=== PATIENT | male | born 1970 | race Caucasian/White ===

== ENCOUNTER 2018-08-28 14:15 | Inpatient (IN) ==
[2018-08-28] MEDS ORDERED: dilTIAZem HCl 5 MG/ML 5 ML VIAL IV STA (14:44)
[2018-08-28] MEDS ORDERED: dilTIAZem HCl 125 MG in DEXTROSE 5% 100 ML IV SCH (14:45)
--- NOTE | 2018-08-28 14:47 | XRay Report ---
XR chest 1V portable CLINICAL HISTORY: weakness COMPARISON STUDY: No previous studies for comparison. FINDINGS: The heart is enlarged. There is radiographic evidence of mild pulmonary vascular congestion . Lung markings are likely situated due to the patient's large body habitus. There is no focal pulmon jeffrey consolidation. No pleural effusions are visualized.[ IMPRESSION: 1. Technically limited study secondary to patient's large body habitus 2. Cardiomegaly and suspected mild pulmonary vascular congestion. Electronically signed by: Art Brar M.D. 08/28/2018 2:46 PM
[2018-08-28 15:29] LABS: Basophils # (auto) 0.03 K/uL (0-0.2); Basophils % (auto) 0.3 %; Eosinophils # (auto) 0.06 K/uL (0-0.5); Eosinophils % (auto) 0.6 %; Hematocrit (blood only) 45.5 % (42-52); Immature Granulocytes # (auto) 0.06 K/uL (0.00-0.02); Immature Granulocytes % (auto) 0.6 %; Lymphocytes # (auto) 1.79 K/uL (1.2-3.4); Lymphocytes % (auto) 16.8 %; Mean Corpuscular Volume 80.4 fL (80-100); Monocytes # (auto) 0.87 K/uL (0.11-0.59); Monocytes % (auto) 8.2 %; Neutrophils # (auto) 7.85 K/uL (1.4-6.5); Neutrophils % (auto) 73.5 %; Platelet Count 295 K/uL (130-400); RDW Coefficient of Variation 15.3 % (11.5-14.5); RDW Standard Deviation 44.2 fL (36.4-46.3); Red Blood Count 5.66 M/uL (4.7-6.1); White Blood Count 10.66 K/uL (4.8-10.8)
[2018-08-28 15:35] LABS: Alanine Aminotransferase 46 U/L (12-78); Albumin Level 3.7 gm/dl (3.4-5.0); Aspartate Aminotransferase 29 U/L (15-37); BUN Creatinine Ratio 8.4 (10-20); Blood Urea Nitrogen 7 mg/dl (7-18); Calcium 8.6 mg/dl (8.5-10.1); Carbon Dioxide 24 mmol/L (21-32); Chloride 102 mmol/L (98-107); Creatinine Clr Calc Pharmacy 224.5 ml/min; Est GFR (African American) 118.6; Est GFR (Non-African American) 102.3; Glucose 125 mg/dl (70-99); Potassium 4.1 mmol/L (3.5-5.1); Sodium 134 mmol/L (136-145)
[2018-08-28 15:43] LABS: INR 2.9 (0.9-1.1); Prothrombin Time 27.2 Seconds (9.0-12.0)
[2018-08-28 15:46] LABS: Alkaline Phosphatase 80 U/L (45-117); Bilirubin,Total 0.6 mg/dl (0.2-1); Creatine Kinase 205 U/L (39-308); Globulin 3.8 gm/dl (2.5-4.0); Total Protein 7.5 gm/dl (6.4-8.2); Troponin I < 0.015 ng/ml (0-0.045)
[2018-08-28] MEDS ORDERED: HALOPERIDOL LACTATE 5 MG/ML 1 ML VIAL IM STA ×2 (16:20→16:37)
[2018-08-28] MEDS ORDERED: LORazepam 2 MG/ML VIAL (IM USE) IM STA (16:20)
[2018-08-28] MEDS ORDERED: HALOPERIDOL LACTATE 5 MG/ML 1 ML VIAL IV STA (16:34)
[2018-08-28 17:36] LABS: Appearance Urine Clear (Clear); Bilirubin Urine Negative (Negative); Color Urine Yellow; Glucose Urine UA Negative (Negative); Ketones Urine Negative (Negative); Leukocyte Esterase Urine Negative (Negative); Nitrite Urine Negative (Negative); Protein Urine Negative (Negative); Specific Gravity Urine 1.008 (1.000-1.030); Urobilinogen Urine Negative (Negative)
[2018-08-28 17:52] LABS: Bacteria Urine Automated Negative (Negative); Cast Urine Automated 0 /lpf (0-5); Epithelial Cell Urine Auto 0-5 /lpf (0-5); WBC Urine Automated 0 /hpf (0-5)
[2018-08-28 17:55] LABS: Amphetamines+Metham, Urine Neg (Neg); Barbiturates, Urine Neg (Neg); Benzodiazepine, Urine Neg (Neg); Cocaine, Urine Neg (Neg); MDMA (Ecstacy), Urine Neg (Neg); Methadone, Urine Neg (Neg); Opiate, Urine Neg (Neg); Phencyclidine, Urine Neg (Neg)
[2018-08-28] MEDS ORDERED: KETAMINE HCL 50 MG/ML IV STA (18:03)
[2018-08-28] MEDS ORDERED: KETAMINE HCL INJ 50 MG/ML 10 ML VIAL IV STA (18:30)
--- NOTE | 2018-08-28 19:19 | Emergency Department Note ---
Entered by Devonte Fletcher acting as a scribe for Marlon Horta DO History of Present Illness General Chief complaint: Altered Mental Status Time Seen by Provider: 08/28/18 14:20 Source: patient and other (nurse) Mode of arrival: ambulatory History of Present Illness Provider complaint: altered mental status Onset (ago): day(s) (today) Location: head Pain Consistency: + other (episode) Quality: + other (altered mental status) Associated symptoms: + denies other symptoms (pain,) and + confusion; no chest pain and no shortness of breath The patient is a 48 year old male who presents to the Emergency Room via EMS secondary to an episode of altered mental status that occurred today prior to arrival. Nursing staff reports that the patient stated he was from the [facility] and wanted to take a drive for some fresh air and ended up in the [facility]. The nurse also reports that one of the hospital workers were leaving work and found the patient sitting in their car. The patient reports that he stopped at the ER for a map and then returned to the wrong vehicle. Nursing staff reports that the patient denies any pain or shortness of breath and states that the patient is tachycardic with a glucose level of 125. Nursing staff also reports that the patient denies any recent trauma. The patient states that he has a history of atrial fibrillation and hypertension, but denies any history of a CVA or VT. The patient states that he is currently unemployed and lives with his and three kids. He further reports that he is currently prescribed warfarin and coumadin. Home Medications Home Medications Medication Instructions Recorded Confirmed Type carvedilol 25 mg PO QPM 08/28/18 08/28/18 History lisinopril 10 mg PO QAM 08/28/18 08/28/18 History multivitamin 1 tab PO QAM 08/28/18 08/28/18 History warfarin 8 mg PO QPM 08/28/18 08/28/18 History Allergies Allergy/AdvReac Type Severity Reaction Status Date / Time No Known Allergies Allergy Verified 08/28/18 17:48 Past Med/Surg History Medical History Afib Bipolar disorder HTN (hypertension) Social History Feels Safe at Home: Yes Smoking Status: Never smoker Review of Systems See HPI for pertinent positives & negatives. and A total of 10 systems reviewed and were otherwise negative Physical Exam Vital Signs Vital Signs - 24 hr 08/28/18 14:26 08/28/18 14:31 08/28/18 16:34 Temperature 36.5 C Temperature Source Oral Sepsis Recent Fever Within 48 Hours No Sepsis New/Unexplained Change in Mental Status No Sepsis Action Taken by Nursing No Action Required Pulse Rate 152 H 154 H Pulse Rate [Finger] 82 Pulse Rate from SpO2 Sensor 140 H Pulse Rhythm Irregular Pulse Rhythm [Finger] Respiratory Rate 19 28 H 18 Respiratory Effort / Characteristics Non-Labored Spontaneous Respiratory Depth Normal Respiratory Pattern Regular Blood Pressure 152/106 H 127/85 Blood Pressure [Left Arm] Blood Pressure [Right Arm] 142/102 H Blood Pressure Mean 121 99 Blood Pressure Mean [Left Arm] Blood Pressure Mean [Right Arm] 115 Pulse Oximetry 97 97 98 Oxygen Delivery Method Room Air Room Air Room Air 08/28/18 18:25 08/28/18 19:05 Temperature Temperature Source Sepsis Recent Fever Within 48 Hours Sepsis New/Unexplained Change in Mental Status Sepsis Action Taken by Nursing Pulse Rate Pulse Rate [Finger] 138 H 120 H Pulse Rate from SpO2 Sensor Pulse Rhythm Pulse Rhythm [Finger] Irregular Respiratory Rate 17 15 Respiratory Effort / Characteristics Non-Labored Respiratory Depth Normal Respiratory Pattern Regular Blood Pressure Blood Pressure [Left Arm] 123/99 176/98 H Blood Pressure [Right Arm] 176/98 H Blood Pressure Mean Blood Pressure Mean [Left Arm] 107 124 Blood Pressure Mean [Right Arm] 124 Pulse Oximetry 95 97 Oxygen Delivery Method Room Air Room Air VITAL SIGNS: were reviewed as above. GENERAL:Non-toxic in appearance. SKIN: Warm dry and pink. HEAD: Normocephalic and atraumatic. OROPHARYNX: Is clear and moist NECK: Supple without lymphadenopathy or meningismus. LUNGS: clear. HEART: Regular rate and rhythm. ABDOMEN: Soft and nontender. EXTREMITIES: Warm and well perfused. NEUROLOGICALLY: Awake alert and oriented without focal deficit. Cranial nerves 2 -12 are intact. There is no pronator drift. Cerebellar testing is within normal limits. There is no nystagmus. There is no facial droop. Speech is clear. Vision is grossly normal. Mild confusion about events today. MUSCULOSKELETAL: Good muscle tone. No evidence of trauma. Course 1424: Past medical records reviewed. The patient was evaluated in room [facility], and a complete history and physical examination were performed. 1432: I spoke on the phone with the patient's Kelli and she states that she filed a 302 petition against him last night in [facility] in [facility] because she and he daughter did not feel safe around the patient. She further states that the patient has been acting weird and has not been taking his bipolar medications. 1520: The patient was unable to hold still for the CT scan was was over the weight limit. 1730: I reviewed the patients case with Enedina Marie PA-C. She states that she is unable to admit the patient without a negative CT scan. The patient will be sedated and taken back to CT. 1928: I reviewed the [facility] He will evaluate the patient for further management. Consultations Consultation #1: Enedina Marie PA-C Time: 17:30 Consultation #2: [facility] Time: 19:28 Administered Medications Diltiazem HCl 125 mg/ Dextrose 125 mls @ 0 mls/hr IV .Q0M JUAN CARLOS; Protocol Stop: 09/27/18 14:44 Last Titration: 08/28/18 19:24 Dose: 10 mg/hr, 10 mls/hr Titration: 08/28/18 16:25 Dose: 0 mg/hr, 0 mls/hr Admin: 08/28/18 15:42 Dose: 10 mg/hr, 10 mls/hr Discontinued Medications Diltiazem HCl (Cardizem) 30 mg IV NOW STA Stop: 08/28/18 14:45 Last Admin: 08/28/18 15:08 Dose: 30 mg Haloperidol Lactate (Haldol) 5 mg IM NOW STA Stop: 08/28/18 16:21 Last Admin: 08/28/18 16:44 Dose: 5 mg Haloperidol Lactate (Haldol) 5 mg IV NOW STA Stop: 08/28/18 16:35 Last Admin: 08/28/18 16:45 Dose: Not Given Haloperidol Lactate (Haldol) 5 mg IM NOW STA Stop: 08/28/18 16:38 Last Admin: 08/28/18 16:44 Dose: 5 mg Ketamine HCl (Ketalar Steri-Vial) 50 mg IV NOW STA Stop: 08/28/18 18:31 Last Admin: 08/28/18 18:36 Dose: 50 mg Lorazepam (Ativan) 2 mg IM NOW STA Stop: 08/28/18 16:21 Last Admin: 08/28/18 16:43 Dose: 2 mg Medical Decision Making Differential Diagnosis Differential diagnosis: Etiologies such as metabolic, infection, hypoglycemia, electrolyte abnormalities , cardiac sources, intracerebral event, toxicologic, neurologic, as well as others were entertained. Medical Records Attestation: I reviewed the patient's medical records. Home Medications Current Medication List: was personally reviewed by me Laboratory Data Attestation: I reviewed the patient's lab results. Result diagrams: 08/28/18 15:00 08/28/18 15:00 Lab Results 08/28/18 08/28/18 08/28/18 Range/Units 14:28 15:00 15:00 WBC 10.66 (4.8-10.8) K/uL RBC 5.66 (4.7-6.1) M/uL Hgb 15.0 (14.0-18.0) g/dL Hct 45.5 (42-52) % MCV 80.4 (80-100) fL MCH 26.5 (25-34) pg MCHC 33.0 (32-36) g/dL RDW Std Deviation 44.2 (36.4-46.3) fL RDW Coeff of Natalia 15.3 H (11.5-14.5) % Plt Count 295 (130-400) K/uL MPV 12.0 H (7.4-10.4) fL Immature Gran % (Auto) 0.6 % Neut % (Auto) 73.5 % Lymph % (Auto) 16.8 % Cobb % (Auto) 8.2 % Eos % (Auto) 0.6 % Baso % (Auto) 0.3 % Immature Gran # (Auto) 0.06 H (0.00-0.02) K/uL Neut # (Auto) 7.85 H (1.4-6.5) K/uL Lymph # (Auto) 1.79 (1.2-3.4) K/uL Cobb # (Auto) 0.87 H (0.11-0.59) K/uL Eos # (Auto) 0.06 (0-0.5) K/uL Baso # (Auto) 0.03 (0-0.2) K/uL PT 27.2 H (9.0-12.0) Seconds INR 2.9 H (0.9-1.1) Sodium (136-145) mmol/L Potassium (3.5-5.1) mmol/L Chloride (98-107) mmol/L Carbon Dioxide (21-32) mmol/L Anion Gap (3-11) BUN (7-18) mg/dl Creatinine (0.6-1.4) mg/dl Est Cr Clr Drug Dosing ml/min Est GFR ( Amer) Est GFR (Non-Af Amer) BUN/Creatinine Ratio (10-20) Glucose (70-99) mg/dl POC Glucose 125 H (70-99) Calcium (8.5-10.1) mg/dl Total Bilirubin (0.2-1) mg/dl AST (15-37) U/L ALT (12-78) U/L Alkaline Phosphatase (45-117) U/L Ammonia (11-32) umol/L Total Creatine Kinase (39-308) U/L Troponin I (0-0.045) ng/ml Total Protein (6.4-8.2) gm/dl Albumin (3.4-5.0) gm/dl Globulin (2.5-4.0) gm/dl Albumin/Globulin Ratio (0.9-2) TSH (0.300-4.500) uIu/ml Urine Color Urine Appearance (Clear) Urine pH (4.5-7.5) Ur Specific [place] (1.000-1.030) Urine Protein (Negative) Urine Glucose (UA) (Negative) Urine Ketones (Negative) Urine Blood (Negative) Urine Nitrite (Negative) Urine Bilirubin (Negative) Urine Urobilinogen (Negative) Ur Leukocyte Esterase (Negative) Urine WBC (Auto) (0-5) /hpf Urine RBC (Auto) (0-4) /hpf U Hyaline Cast (Auto) (0-5) /lpf U Epithel Cells (Auto) (0-5) /lpf Urine Bacteria (Auto) (Negative) Urine Opiates Screen (Neg) Ur Methadone, Qual (Neg) Urine Barbiturates (Neg) Ur Phencyclidine (PCP) (Neg) U Amphetamin/Meth Scrn (Neg) MDMA (Ecstasy) Screen (Neg) U Benzodiazepines Scrn (Neg) Ur Cocaine Metabolite (Neg) U Marijuana (THC) Screen (Neg) Ethyl Alcohol mg/dL (0-3) mg/dl 08/28/18 08/28/18 08/28/18 Range/Units 15:00 15:00 16:52 WBC (4.8-10.8) K/uL RBC (4.7-6.1) M/uL Hgb (14.0-18.0) g/dL Hct (42-52) % MCV (80-100) fL MCH (25-34) pg MCHC (32-36) g/dL RDW Std Deviation (36.4-46.3) fL RDW Coeff of Natalia (11.5-14.5) % Plt Count (130-400) K/uL MPV (7.4-10.4) fL Immature Gran % (Auto) % Neut % (Auto) % Lymph % (Auto) % Cobb % (Auto) % Eos % (Auto) % Baso % (Auto) % Immature Gran # (Auto) (0.00-0.02) K/uL Neut # (Auto) (1.4-6.5) K/uL Lymph # (Auto) (1.2-3.4) K/uL Cobb # (Auto) (0.11-0.59) K/uL Eos # (Auto) (0-0.5) K/uL Baso # (Auto) (0-0.2) K/uL PT (9.0-12.0) Seconds INR (0.9-1.1) Sodium 134 L (136-145) mmol/L Potassium 4.1 (3.5-5.1) mmol/L Chloride 102 (98-107) mmol/L Carbon Dioxide 24 (21-32) mmol/L Anion Gap 8.0 (3-11) BUN 7 (7-18) mg/dl Creatinine 0.85 (0.6-1.4) mg/dl Est Cr Clr Drug Dosing 224.5 ml/min Est GFR ( Amer) 118.6 Est GFR (Non-Af Amer) 102.3 BUN/Creatinine Ratio 8.4 L (10-20) Glucose 125 H (70-99) mg/dl POC Glucose (70-99) Calcium 8.6 (8.5-10.1) mg/dl Total Bilirubin 0.6 (0.2-1) mg/dl AST 29 (15-37) U/L ALT 46 (12-78) U/L Alkaline Phosphatase 80 (45-117) U/L Ammonia 23.3 (11-32) umol/L Total Creatine Kinase 205 (39-308) U/L Troponin I < 0.015 (0-0.045) ng/ml Total Protein 7.5 (6.4-8.2) gm/dl Albumin 3.7 (3.4-5.0) gm/dl Globulin 3.8 (2.5-4.0) gm/dl Albumin/Globulin Ratio 1.0 (0.9-2) TSH 0.691 (0.300-4.500) uIu/ml Urine Color Urine Appearance (Clear) Urine pH (4.5-7.5) Ur Specific [place] (1.000-1.030) Urine Protein (Negative) Urine Glucose (UA) (Negative) Urine Ketones (Negative) Urine Blood (Negative) Urine Nitrite (Negative) Urine Bilirubin (Negative) Urine Urobilinogen (Negative) Ur Leukocyte Esterase (Negative) Urine WBC (Auto) (0-5) /hpf Urine RBC (Auto) (0-4) /hpf U Hyaline Cast (Auto) (0-5) /lpf U Epithel Cells (Auto) (0-5) /lpf Urine Bacteria (Auto) (Negative) Urine Opiates Screen (Neg) Ur Methadone, Qual (Neg) Urine Barbiturates (Neg) Ur Phencyclidine (PCP) (Neg) U Amphetamin/Meth Scrn (Neg) MDMA (Ecstasy) Screen (Neg) U Benzodiazepines Scrn (Neg) Ur Cocaine Metabolite (Neg) U Marijuana (THC) Screen (Neg) Ethyl Alcohol mg/dL < 3.0 (0-3) mg/dl 08/28/18 08/28/18 Range/Units 17:22 17:22 WBC (4.8-10.8) K/uL RBC (4.7-6.1) M/uL Hgb (14.0-18.0) g/dL Hct (42-52) % MCV (80-100) fL MCH (25-34) pg MCHC (32-36) g/dL RDW Std Deviation (36.4-46.3) fL RDW Coeff of Natalia (11.5-14.5) % Plt Count (130-400) K/uL MPV (7.4-10.4) fL Immature Gran % (Auto) % Neut % (Auto) % Lymph % (Auto) % Cobb % (Auto) % Eos % (Auto) % Baso % (Auto) % Immature Gran # (Auto) (0.00-0.02) K/uL Neut # (Auto) (1.4-6.5) K/uL Lymph # (Auto) (1.2-3.4) K/uL Cobb # (Auto) (0.11-0.59) K/uL Eos # (Auto) (0-0.5) K/uL Baso # (Auto) (0-0.2) K/uL PT (9.0-12.0) Seconds INR (0.9-1.1) Sodium (136-145) mmol/L Potassium (3.5-5.1) mmol/L Chloride (98-107) mmol/L Carbon Dioxide (21-32) mmol/L Anion Gap (3-11) BUN (7-18) mg/dl Creatinine (0.6-1.4) mg/dl Est Cr Clr Drug Dosing ml/min Est GFR ( Amer) Est GFR (Non-Af Amer) BUN/Creatinine Ratio (10-20) Glucose (70-99) mg/dl POC Glucose (70-99) Calcium (8.5-10.1) mg/dl Total Bilirubin (0.2-1) mg/dl AST (15-37) U/L ALT (12-78) U/L Alkaline Phosphatase (45-117) U/L Ammonia (11-32) umol/L Total Creatine Kinase (39-308) U/L Troponin I (0-0.045) ng/ml Total Protein (6.4-8.2) gm/dl Albumin (3.4-5.0) gm/dl Globulin (2.5-4.0) gm/dl Albumin/Globulin Ratio (0.9-2) TSH (0.300-4.500) uIu/ml Urine Color Yellow Urine Appearance Clear (Clear) Urine pH 6.0 (4.5-7.5) Ur Specific [place] 1.008 (1.000-1.030) Urine Protein Negative (Negative) Urine Glucose (UA) Negative (Negative) Urine Ketones Negative (Negative) Urine Blood Trace H (Negative) Urine Nitrite Negative (Negative) Urine Bilirubin Negative (Negative) Urine Urobilinogen Negative (Negative) Ur Leukocyte Esterase Negative (Negative) Urine WBC (Auto) 0 (0-5) /hpf Urine RBC (Auto) 0-4 (0-4) /hpf U Hyaline Cast (Auto) 0 (0-5) /lpf U Epithel Cells (Auto) 0-5 (0-5) /lpf Urine Bacteria (Auto) Negative (Negative) Urine Opiates Screen Neg (Neg) Ur Methadone, Qual Neg (Neg) Urine Barbiturates Neg (Neg) Ur Phencyclidine (PCP) Neg (Neg) U Amphetamin/Meth Scrn Neg (Neg) MDMA (Ecstasy) Screen Neg (Neg) U Benzodiazepines Scrn Neg (Neg) Ur Cocaine Metabolite Neg (Neg) U Marijuana (THC) Screen Neg (Neg) Ethyl Alcohol mg/dL (0-3) mg/dl Imaging Data Radiologist's Impression: Radiology results as stated below per my review and the radiologist's interpretation: XR chest 1V portable CLINICAL HISTORY: weakness COMPARISON STUDY: No previous studies for comparison. FINDINGS: The heart is enlarged. There is radiographic evidence of mild pulmonary vascular congestion. Lung markings are likely situated due to the patient's large body habitus. There is no focal pulmonary consolidation. No pleural effusions are visualized.[ IMPRESSION: 1. Technically limited study secondary to patient's large body habitus 2. Cardiomegaly and suspected mild pulmonary vascular congestion. Electronically signed by: Art Brar M.D. 08/28/2018 2:[address] head/brain wo con CLINICAL HISTORY: 48 years-old Male presenting with ams. TECHNIQUE: Multidetector CT imaging of the head was performed without the use of intravenous contrast. IV contrast: None. One or more dose lowering techniques were used consistent with the principles of ALARA (as low as reasonably achievable), including automatic exposure control, mA or kV adjustment to individual patient size, and/or use of iterative reconstruction. COMPARISON: None. CT DOSE (mGy.cm): The estimated cumulative dose is 2248.10 mGy.cm. FINDINGS: Aerospace Engineer topogram: Unremarkable. Ventricles and sulci normal in size. No hemorrhage. Brain parenchyma normal in appearance with preserved medellin-white differentiation. No acute territorial infarct. No mass effect or midline shift. No extra-axial fluid collection. Sclerosis of the maxillary sinus horta indicative of chronic sinusitis. Mucosal thickening in ethmoid air cells and sphenoid sinuses. Calvarium intact. IMPRESSION: 1. No acute intracranial abnormality. 2. Evidence of chronic sinusitis. Electronically signed by: Pillo Howell M.D. 08/28/2018 7:01 PM ECG Data Attestation: I personally reviewed and interpreted this ECG as follows: Indication: altered mental status Rate (beats per minute): 147 Rhythm: atrial fibrillation Findings: no ST elevation and no ectopy Blood Pressure Blood Pressure Findings: Normal blood pressure Blood Pressure Disposition: did not require urgent referral MDM Narrative This is a 48-year-old male who presents to the ED with a chief complaint of confusion. The patient reportedly drove from [place] to [place]. He states that he just went out to get some fresh air and take a little drive. The patient states that he stopped at the hospital to get a map to get some directions on the roads around here. The patient was found in a car in the parking lot that was not his. One of the staff from the hospital went to leave and found him sitting in the car. The patient was brought in for evaluation. The patient reports a history of atrial fibrillation and takes Coumadin. 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 The patient denies any specific complaints. His initial evaluation here revealed that he was in A. fib with RVR with a heart rate of 150. I spoke with his Kelli ([phone]) who lives in [facility]. She reports that the patient has a history of bipolar disorder and is not taking his medications. She has a 302 petition against him at the crisis center in [facility]. This was obtained by her mental health services here. The patient, during his ED stay ripped out his IV and stated he was ready to go. He was advised that he was on IV Cardizem drip to control his heart rate and that this was not acceptable. He seems confused at times. The patient was restrained physically and also with 10 mg IM Haldol and 2 mg of IM Ativan as he pulled his IV out. Because we needed a CT scan, the patient was given 50 mg of IV ketamine to assist with him staying still during the CT scan. Chest x-ray did not show acute process. INR is 2.9. Tox screen was negative. Alcohol was negative. EKG originally showed A. fib with RVR at a rate of 147. CBC is unremarkable, complete metabolic panel was unremarkable. Ammonia level was negative. Chest x-ray was negative for acute disease. An IV was restarted and the IV Cardizem was reinitiated. CT scan of the brain was negative for acute disease. The patient will be seen by the hospitalist. The patient will need psychiatric evaluation while here. Of note , the patient presented with an ID but no license. Security cameras did notice that the patient did drive here and was driving around the parking lot for a while. Impression & Plan Atrial fibrillation with RVR, Confusion, Bipolar disorder Critical Care Time I have personally spent greater than 60 minutes of critical care time in the direct management of this patient. This includes bedside care, interpretation of diagnostic studies, and testing, discussion with consultants, patient, and family members, and other required patient management activities. This 60 minutes is in excess of all separately billable procedures. Critical Care Time: Yes Total Critical Care Time: 60 Discharge Plan Visit Data Chief Complaint: Altered Mental Status Other Complaint: Cardiac Assessment ED Provider: Marlon Horta Discharge Problem: Atrial fibrillation with RVR, Confusion, Bipolar disorder Patient Disposition: Being Evaluated by Hospitalist Forms Stand Alone Forms: My [facility] Prescriptions Prescriptions: No Action multivitamin Tablet 1 tab PO QAM RF: 0 carvedilol 25 mg Tablet 25 mg PO QPM RF: 0 warfarin 4 mg Tablet 8 mg PO QPM RF: 0 lisinopril 10 mg Tablet 10 mg PO QAM RF: 0 Referrals Referrals: PCP,NO [Primary Care Provider] - The scribe's documentation has been prepared under my direction and personally reviewed by me in its entirety. I confirm that the note above accurately reflects all work, treatment, procedures, and medical decision making performed by me.
--- NOTE | 2018-08-28 19:35 | CT Scan Report ---
CT head/brain wo con CLINICAL HISTORY: 48 years-old Male presenting with ams. TECHNIQUE: Multidetector CT imaging of the head was performed without the use of intravenous contrast . IV contrast: None. One or more dose lowering techniques were used consistent with the principles of ALARA (as low as reasonably achievable), including automatic exposure control, mA or kV adjustment t o individual patient size, and/or use of iterative reconstruction. COMPARISON: None. CT DOSE (mGy.cm): The estimated cumulative dose is 2248.10 mGy.cm. FINDINGS: Drier Feeder topogram: Unremarkable. Ventricles and sulci normal in size. No hemorrhage. Brain parenchyma normal in appearance with preser audi medellin-white differentiation. No acute territorial infarct. No mass effect or midline shift. No ext ra-axial fluid collection. Sclerosis of the maxillary sinus horta indicative of chronic sinusitis. Mu cosal thickening in ethmoid air cells and sphenoid sinuses. Calvarium intact. IMPRESSION: 1. No acute intracranial abnormality. 2. Evidence of chronic sinusitis. Electronically signed by: Pillo Howell M.D. 08/28/2018 7:01 PM
[2018-08-28] MEDS ORDERED: ALUMINUM/MAGNESIUM SUSP 30 ML UDC PO PRN (21:32)
[2018-08-28] MEDS ORDERED: ACETAMINOPHEN 325 MG TAB PO PRN (21:32)
[2018-08-28] MEDS ORDERED: CARVEDILOL 25 MG TAB PO SCH (21:32)
[2018-08-28] MEDS ORDERED: NITROGLYCERIN SL 0.4 MG/TAB TAB SL PRN (21:32)
[2018-08-28] MEDS ORDERED: ONDANSETRON INJ 2 MG/ML 2 ML VIAL IV PRN (21:32)
[2018-08-28] MEDS ORDERED: WARFARIN SOD 4 MG TAB PO SCH (21:32)
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
[2018-08-29 04:37] LABS: Basophils # (auto) 0.02 K/uL (0-0.2); Basophils % (auto) 0.2 %; Eosinophils # (auto) 0.14 K/uL (0-0.5); Eosinophils % (auto) 1.2 %; Hematocrit (blood only) 41.7 % (42-52); Hemoglobin 13.9 g/dL (14.0-18.0); Immature Granulocytes # (auto) 0.05 K/uL (0.00-0.02); Immature Granulocytes % (auto) 0.4 %; Lymphocytes % (auto) 22.1 %; Mean Corpuscular Hgb Conc 33.3 g/dL (32-36); Mean Corpuscular Volume 80.7 fL (80-100); Mean Platelet Volume 11.3 fL (7.4-10.4); Monocytes # (auto) 1.09 K/uL (0.11-0.59); Monocytes % (auto) 9.6 %; Neutrophils # (auto) 7.53 K/uL (1.4-6.5); Neutrophils % (auto) 66.5 %; Platelet Count 267 K/uL (130-400); RDW Coefficient of Variation 15.3 % (11.5-14.5); RDW Standard Deviation 44.2 fL (36.4-46.3); Red Blood Count 5.17 M/uL (4.7-6.1); White Blood Count 11.33 K/uL (4.8-10.8)
[2018-08-29 04:50] LABS: BUN Creatinine Ratio 9.3 (10-20); Calcium 8.4 mg/dl (8.5-10.1); Creatinine Clr Calc Pharmacy 240.9 ml/min; Est GFR (African American) 123.5; Est GFR (Non-African American) 106.6; Magnesium 1.9 mg/dl (1.8-2.4); Potassium 4.1 mmol/L (3.5-5.1)
[2018-08-29 04:55] LABS: INR 4.3 (0.9-1.1); Prothrombin Time 39.5 Seconds (9.0-12.0); Troponin I 0.018 ng/ml (0-0.045)
[2018-08-29] MEDS ORDERED: PERFLUTREN LIPID MICROSPHERE (DEFINITY) IV ONE (07:34)
[2018-08-29] MEDS: METOPROLOL TARTRATE 1 MG/ML VIAL IV PRN ×2 (08:25→18:16)
[2018-08-29] MEDS ORDERED: LISINOPRIL 10 MG TAB PO SCH (09:00)
[2018-08-29] MEDS: MULTIVITAMIN TAB PO SCH (09:25)
[2018-08-29] MEDS ORDERED: METOPROLOL TARTRATE 25 MG TAB PO SCH (10:15)
--- NOTE | 2018-08-29 13:39 | Cardiology Consultation ---
Date of Consultation August 29, 2018 Assessment & Plan (1) Atrial fibrillation with RVR: The patient is hemodynamically stable and he is apparently asymptomatic from atrial fibrillation standpoint. He describes to me that he has chronic permanent atrial fibrillation. Past unsuccessful cardioversion. Currently on telemetry atrial fibrillation with rates in the range of 110-129 bpm is present. He initially received IV diltiazem and this is since been discontinued. The home medication regimen has reported to the admitting team including carvedilol 25 mg daily at bedtime. This of course would be an unusual dose of carvedilol as it is typically a 2 time per day medication unless he is on the sustained release formulation. He received a dose of carvedilol 25 mg last evening and just after 10 PM, and received a 2.5 mg dose of metoprolol tartrate earlier this morning. At present, I am going to discontinue his carvedilol in favor of metoprolol tartrate for rate control. This is been chosen because of its easy ability to be titrated and it is usually a little bit of a better agent for rate control than the nonselective beta-praful carvedilol which typically serves a role in the setting of LV systolic dysfunction and hypertension. Also administered IV digoxin for additional rate control since he is in the intensive care unit and has IV access. Hold Coumadin given INR above 4 today on repeat. Repeat INR tomorrow. I have reviewed his echocardiogram. Mild global left ventricular hypokinesis is noted, but the regional wall motion and ejection fraction are often times challenging to determine in the setting of atrial fibrillation with rapid ventricular response. I believe he has mild LV systolic dysfunction at present with his rapid ventricular response. The valves were not well visualized, but there were no grossly significant stenotic regurgitant lesions noted on Doppler assessment. History of Present Illness Attending Physician: Marcus Mccormick MD History of Present Illness Reuben Bhatt is a 48-year-old male seen in cardiology consultation per the request of Dr. Kohli for the evaluation of atrial fibrillation with rapid ventricular response. The patient was seen in room 109. He was sitting in the bedside chair. He was conversant. He told me that he has a long-standing history of atrial fibrillation. He describes having had one past cardioversion. He described having had 3 past outpatient heart monitors and per his recollection he is "always in atrial fibrillation ". He takes warfarin for stroke prophylaxis, and follows with a cardiology provider in [place]. He states he takes carvedilol. Based on his admission INR of 2.9, it does appear that he has been taking his Coumadin. The patient was admitted via the emergency room after he was found wandering the parking lot confused and agitated. Allergies Allergy/AdvReac Type Severity Reaction Status Date / Time No Known Allergies Allergy Verified 08/28/18 17:48 Home Medications Home Medications Medication Instructions Recorded Confirmed Type carvedilol 25 mg PO QPM 08/28/18 08/28/18 History lisinopril 10 mg PO QAM 08/28/18 08/28/18 History multivitamin 1 tab PO QAM 08/28/18 08/28/18 History warfarin 8 mg PO QPM 08/28/18 08/28/18 History Patient History Medical History Afib Bipolar disorder HTN (hypertension) Social History Current Living Situation: Family Other Information That Helps Us Care for You: No Feels Safe at Home: Yes Safety Concerns: Feels Safe At This Time Smoking Status: Never smoker Do You Dip or Chew Tobacco: No Second Hand Exposure: No Tobacco Cessation Education Requested by Patient: No Hx Alcohol Use: Yes Alcohol type: beer Alcohol Intake Frequency: a few times a month Hx Substance Use: No Beliefs That Will Affect Care: None Communication Ability: Effective Review of Systems A 10 point review of systems was performed and is negative with the exception of that above Physical Exam 2 Vital Signs (Past 24 Hours): Last Vital Signs Temp 36.5 C 08/29/18 12:00 Pulse 117 H 08/29/18 12:00 Resp 22 08/29/18 12:00 BP 123/93 08/29/18 12:00 Pulse Ox 92 08/29/18 12:00 Physical Exam: General: no acute distress and stated age, morbidly obese Eyes: conjunctiva are pink and non-injected, sclera clear Neck: normal jugular venous pulse, no hepatojugular reflux Chest: normal shape and normal respiratory effort Lungs: clear to auscultation and percussion Cardiac Exam: -Tachycardic, irregular rhythm, no murmurs, rubs, or gallops, no jugular venous distention Abdomen: abdomen soft, non-tender, no abnormal masses and no hepatosplenomegaly Musculoskeletal: no gait disturbance, no weakness Extremities: no edema and no cyanosis Neuro:awake, coversant, follows commands, no focal motor deficits Results & Data Laboratory Results Cardiac Enzymes 08/28/18 08/28/18 08/29/18 Range/Units 15:00 22:00 03:43 AST 29 (15-37) U/L Troponin I < 0.015 0.018 0.018 (0-0.045) ng/ml Coagulation 08/28/18 08/29/18 Range/Units 15:00 03:43 PT 27.2 H 39.5 H (9.0-12.0) Seconds CBC 08/28/18 08/29/18 Range/Units 15:00 03:43 WBC 10.66 11.33 H (4.8-10.8) K/uL RBC 5.66 5.17 (4.7-6.1) M/uL Hgb 15.0 13.9 L (14.0-18.0) g/dL Hct 45.5 41.7 L (42-52) % Plt Count 295 267 (130-400) K/uL Neut # (Auto) 7.85 H 7.53 H (1.4-6.5) K/uL Lymph # (Auto) 1.79 2.50 (1.2-3.4) K/uL Sheridan # (Auto) 0.87 H 1.09 H (0.11-0.59) K/uL Eos # (Auto) 0.06 0.14 (0-0.5) K/uL Baso # (Auto) 0.03 0.02 (0-0.2) K/uL Comprehensive Metabolic Panel 08/28/18 08/29/18 Range/Units 15:00 03:43 Sodium 134 L 136 (136-145) mmol/L Potassium 4.1 4.1 (3.5-5.1) mmol/L Chloride 102 103 (98-107) mmol/L Carbon Dioxide 24 27 (21-32) mmol/L BUN 7 7 (7-18) mg/dl Creatinine 0.85 0.77 (0.6-1.4) mg/dl Glucose 125 H 120 H (70-99) mg/dl Calcium 8.6 8.4 L (8.5-10.1) mg/dl AST 29 (15-37) U/L ALT 46 (12-78) U/L Alkaline Phosphatase 80 (45-117) U/L Total Protein 7.5 (6.4-8.2) gm/dl Albumin 3.7 (3.4-5.0) gm/dl Intake and Output 08/28/18 08/29/18 08/29/18 22:59 06:59 14:59 Intake Total 33.834 / 33.834 Output Total 1150 / 1150 626 / 626 Balance -1116.166 / -1116.166 -626 / -626 Intake: IV 33.834 / 33.834 Cardizem 125 mg In D5 100 ml @ 33.834 / 33.834 Per Protocol IV .Q0M [facility] Rx#: [id number] Output: Urine 1150 / 1150 625 / 625 Stool Other: # Unmeasured Voids 1 Weight 228.293 kg 233.2 kg Diagnostic Findings EKG performed 08/28/18 at 1437 revealed atrial fibrillation with rapid ventricular response [address] abnormality.
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
[2018-08-29] MEDS ORDERED: DIGOXIN 250 MCG in SYRINGE 9 ML IV STA (13:55)
[2018-08-29] MEDS: DIGOXIN 0.25 MG TAB PO SCH (16:09)
[2018-08-29] MEDS: METOPROLOL TARTRATE 25 MG TAB PO SCH ×2 (17:08→20:59)
[2018-08-29] MEDS ORDERED: dilTIAZem HCl 125 MG in DEXTROSE 5% 100 ML IV PRN (18:15)
--- NOTE | 2018-08-29 18:17 | Hospitalist Progress Note ---
Date of Service August 29, 2018 Assessment & Plan (1) Atrial fibrillation with RVR: Atrial fibrillation with RVR -08/29/18 had received digoxin, cardiology service started scheduled metoprolol -despite being on medical therapies to slow down heart rate, patient's resting heart rate between 100 to 120 bpm at rest and up to 140s bpm when ambulating -will try low dose diltiazem IV drip -will avoid lisinopril at this time to avoid hypotension with heart rate control medications -INR is supratherapeutic on 08/29/18 as 4 and will hold off on coumadin -echocardiogram: "Mild global left ventricular hypokinesis is noted, but the regional wall motion and ejection fraction are often times challenging to determine in the setting of atrial fibrillation with rapid ventricular response. I believe he has mild LV systolic dysfunction at present with his rapid ventricular response. The valves were not well visualized, but there were no grossly significant stenotic regurgitant lesions noted on Doppler assessment." bipolar disorder -patient from [facility]; a 302 warrant had been issued for him in [facility] -admitted medically to [facility] after he was found sitting in a hospital staff member's car in the parking lot and was confused and found to have atrial fibrillation with RVR (He became agitated, tried to leave the ER , ripped out his IV and had to be physically restrained. He received 10 mg Haldol and 2 mg Ativan IM. He received IV ketamine in order to get a head CT, which was negative) -as per psychiatry assessment 08/29/18 that patient "presents a risk of harm to both himself and others as a result of his uncontrolled mental illness. Recommend inpatient psychiatric hospitalization at a hospital in [place] on an involuntary [place] once he is medically stabilized. This will allow easier involvement of his family and familiarity with local outpatient services. " -currently cooperative with medical staff -will have Haldol prn q12h if agitation morbid obesity with BMI 61 -patient is very agile and mobile despite being very obese, no apparent physical therapy or occupational therapy needs possible Obstructive sleep apnea will try CPAP with sleep if patient is agreeable to use DVT prophylaxis: supratherapeutic INR Subjective Patient denies acute chest pain or feeling palpitation despite being on medical therapies to slow down heart rate, patient's resting heart rate between 100 to 120 bpm at rest and up to 140s bpm when ambulating Patient denies shortness of breath or lightheadedness or other symptoms He voices his cooperation with medical staff Physical Exam 2 Vital Signs (Past 24 Hours): Last Vital Signs Temp 36.5 C 08/29/18 16:00 Pulse 145 H 08/29/18 16:09 Resp 18 08/29/18 16:00 BP 134/112 H 08/29/18 16:00 Pulse Ox 97 08/29/18 16:00 Constitutional: + obese Eyes: PERRL, conjunctivae normal, anicteric sclerae EOM intact bilaterally ENMT: external ear and nose normal, oropharynx normal Neck: normal visual inspection and trachea midline Respiratory: normal respiratory effort, lungs clear to auscultation Cardiovascular: Rate/Rhythm: + tachycardic Gastrointestinal (Abdomen): normal bowel sounds, soft, nontender, no hepatosplenomegaly Musculoskeletal: no cyanosis or clubbing, extremities motor strength 5/5 Head/Neck/Chest: normocephalic and head atraumatic Neurologic: PERRL, EOMI, accommodation nl, no face palsy, no dysarthria CN' s II-XI intact bilaterally Psychiatric: A+Ox3, euthymic affect
[2018-08-29] MEDS ORDERED: HALOPERIDOL LACTATE 5 MG/ML 1 ML VIAL IV PRN (18:30)
[2018-08-30 07:22] LABS: INR 4.4 (0.9-1.1); Prothrombin Time 40.3 Seconds (9.0-12.0)
[2018-08-30 07:37] LABS: BUN Creatinine Ratio 11.8 (10-20); Calcium 8.5 mg/dl (8.5-10.1); Creatinine Clr Calc Pharmacy 254.1 ml/min; Est GFR (African American) 126.2; Est GFR (Non-African American) 108.9
[2018-08-30 07:46] LABS: Hematocrit (blood only) 42.2 % (42-52); Hemoglobin 13.8 g/dL (14.0-18.0); Mean Corpuscular Hgb Conc 32.7 g/dL (32-36); Mean Corpuscular Volume 81.2 fL (80-100); Platelet Count 287 K/uL (130-400); RDW Coefficient of Variation 15.6 % (11.5-14.5); RDW Standard Deviation 45.9 fL (36.4-46.3); White Blood Count 7.28 K/uL (4.8-10.8)
[2018-08-30 07:48] LABS: Basophils # (auto) 0.03 K/uL (0-0.2); Basophils % (auto) 0.4 %; Eosinophils # (auto) 0.19 K/uL (0-0.5); Eosinophils % (auto) 2.6 %; Immature Granulocytes # (auto) 0.02 K/uL (0.00-0.02); Immature Granulocytes % (auto) 0.3 %; Lymphocytes # (auto) 1.98 K/uL (1.2-3.4); Lymphocytes % (auto) 27.2 %; Neutrophils # (auto) 4.26 K/uL (1.4-6.5); Neutrophils % (auto) 58.5 %
[2018-08-30] MEDS: MULTIVITAMIN TAB PO SCH (08:29)
[2018-08-30] MEDS: METOPROLOL TARTRATE 25 MG TAB PO SCH ×4 (08:29→21:17)
--- NOTE | 2018-08-30 11:02 | Hospitalist Progress Note ---
Date of Service August 30, 2018 Assessment & Plan (1) Atrial fibrillation with RVR: Atrial fibrillation with RVR -echocardiogram: "Mild global left ventricular hypokinesis is noted, but the regional wall motion and ejection fraction are often times challenging to determine in the setting of atrial fibrillation with rapid ventricular response. I believe he has mild LV systolic dysfunction at present with his rapid ventricular response. The valves were not well visualized, but there were no grossly significant stenotic regurgitant lesions noted on Doppler assessment." -08/29/18 had received digoxin, cardiology service started scheduled metoprolol -despite being on medical therapies to slow down heart rate, patient's resting heart rate between 100 to 120 bpm at rest and up to 140s bpm when ambulating -At night of 08/29/18, patient was started on IV diltiazem with scheduled metoprolol as heart rates noted to have been as high as 140 bpm. subsequent heart rate improvements and diltizem drip was stopped by nocturnalist. However the patient did become more tachycardic. Nurse also reported that patient received 1 dose of haldol before the morning shift. -08/30/18 Patient's heart rate better controlled overall but noted to have episodes of tachycardia with the atrial fibrillation; continue scheduled metoprolol, appreciate further cardiology recommendations -continue to monitor on telemetry for heart rate management Supratherapeutic INR Coumadin level remains elevated at 4.4 continue to hold coumadin bipolar disorder -patient from [facility]; a 302 warrant had been issued for him in [facility] -admitted medically to [facility] after he was found sitting in a hospital staff member's car in the parking lot and was confused and found to have atrial fibrillation with RVR (He became agitated, tried to leave the ER , ripped out his IV and had to be physically restrained. He received 10 mg Haldol and 2 mg Ativan IM. He received IV ketamine in order to get a head CT, which was negative) -as per psychiatry assessment 08/29/18 that patient "presents a risk of harm to both himself and others as a result of his uncontrolled mental illness. Recommend inpatient psychiatric hospitalization at a hospital in [place] on an involuntary commitment once he is medically stabilized. This will allow easier involvement of his family and familiarity with local outpatient services. " -08/29/18 to 08/30/18: Nurse reported that patient received 1 dose of haldol before the morning shift -currently cooperative with medical staff, will try to avoid Haldol unless needed for acute agitation morbid obesity with BMI 61 -patient is very agile and mobile despite being very obese, no apparent physical therapy or occupational therapy needs possible Obstructive sleep apnea CPAP with sleep, patient tolerating CPAP DVT prophylaxis: supratherapeutic INR Subjective Overnight patient was started on IV diltiazem with scheduled metoprolol as heart rates noted to have been as high as 140 bpm. subsequent heart rate improvements and diltizem drip was stopped by nocturnalist. However the patient did become more tachycardic. Nurse also reported that patient received 1 dose of haldol before the morning shift. Patient's heart rate better controlled overall but noted to have episodes of tachycardia with the atrial fibrillation Coumadin level remains elevated at 4.4 Patient seen and examined with CPAP Patient cooperative on exam. Patient denies chest pain or palpitations or shortness of breath. denies abdominal pain or leg swelling. denies blood in urine or in stool Physical Exam 2 Vital Signs (Past 24 Hours): Last Vital Signs Temp 36.3 C L 08/30/18 06:59 Pulse 105 H 08/30/18 06:59 Resp 20 08/30/18 06:59 BP 158/92 H 08/30/18 06:59 Pulse Ox 95 08/30/18 06:59 Constitutional: + obese Eyes: PERRL, conjunctivae normal, anicteric sclerae EOM intact bilaterally ENMT: external ear and nose normal, oropharynx normal Neck: normal visual inspection and trachea midline Respiratory: normal respiratory effort, lungs clear to auscultation Cardiovascular: Rate/Rhythm: + tachycardic Gastrointestinal (Abdomen): normal bowel sounds, soft, nontender, no hepatosplenomegaly Musculoskeletal: no cyanosis or clubbing, extremities motor strength 5/5 Head/Neck/Chest: normocephalic and head atraumatic Neurologic: PERRL, EOMI, accommodation nl, no face palsy, no dysarthria CN' s II-XI intact bilaterally Psychiatric: A+Ox3, euthymic affect
--- NOTE | 2018-08-30 12:51 | Cardiology Progress Note ---
Date of Service August 30, 2018 Assessment & Plan (1) Atrial fibrillation with RVR: Patient with history of chronic permanent atrial fibrillation per his description to me. Ventricular rates were above goal, but trending toward improvement. Coumadin is on hold for supratherapeutic INR in the range of 4.4 today. Continue metoprolol tartrate, digoxin. Mild LV systolic dysfunction is likely just due to his rapid ventricular response. Agree with plan to optimize him from medical standpoint prior to transition to the mental health service for further treatment of his bipolar disorder. Subjective Chief complaint: Follow-up atrial fibrillation Subjective: Patient has been transferred to room 209. One-to-one supervision manager nursing is in the room with him. He is appropriate. He is feeling well. Medication changes were made in attempt to better control his ventricular rates yesterday. He was transitioned from carvedilol to metoprolol, and digoxin was added. Atrial fibrillation 130 bpm was noted throughout the day yesterday and is now improved in the range of 100-115 bpm. Physical Exam 2 Vital Signs (Past 24 Hours): Last Vital Signs Temp 36.5 C 08/30/18 11:38 Pulse 86 08/30/18 11:38 Resp 21 08/30/18 11:38 BP 152/120 H 08/30/18 11:38 Pulse Ox 96 08/30/18 11:38 Physical Exam: General: Obese, no acute distress Eyes: conjunctiva are pink and non-injected, sclera clear Neck: normal jugular venous pulse, no hepatojugular reflux Chest: normal shape and normal respiratory effort Lungs: clear to auscultation and percussion Cardiac Exam: - tachycardic, irregular Abdomen: abdomen soft, non-tender, no abnormal masses and no hepatosplenomegaly Extremities: No edema, erythema noted at the site of his right forearm IV Neuro:awake, coversant, follows commands, no focal motor deficits Psych: appropriate affect and insight.
[2018-08-30] MEDS: DIGOXIN 0.25 MG TAB PO SCH (16:47)
[2018-08-30] MEDS ORDERED: METOPROLOL TARTRATE 1 MG/ML VIAL IV PRN (17:02)
[2018-08-31 07:09] LABS: INR 3.4 (0.9-1.1); Prothrombin Time 31.6 Seconds (9.0-12.0)
--- NOTE | 2018-08-31 08:53 | Hospitalist Progress Note ---
Date of Service August 31, 2018 Assessment & Plan (1) Atrial fibrillation with RVR: Atrial fibrillation with RVR -echocardiogram: "Mild global left ventricular hypokinesis is noted, but the regional wall motion and ejection fraction are often times challenging to determine in the setting of atrial fibrillation with rapid ventricular response. I believe he has mild LV systolic dysfunction at present with his rapid ventricular response. The valves were not well visualized, but there were no grossly significant stenotic regurgitant lesions noted on Doppler assessment." -08/29/18 had received digoxin, cardiology service started scheduled metoprolol -despite being on medical therapies to slow down heart rate, patient's resting heart rate between 100 to 120 bpm at rest and up to 140s bpm when ambulating -At night of 08/29/18, patient was started on IV diltiazem with scheduled metoprolol as heart rates noted to have been as high as 140 bpm. subsequent heart rate improvements and diltizem drip was stopped by nocturnalist. However the patient did become more tachycardic. Nurse also reported that patient received 1 dose of haldol before the morning shift. -08/30/18 Patient's heart rate better controlled overall but noted to have episodes of tachycardia with the atrial fibrillation; was on scheduled metoprolol 25 mg QID -08/31/18: Patient was first this morning after hospitalist reviewing telemetry monitoring that patient's heart rate in 150 bpm. Patient was ambulatory with medical staff at the time. Patient returned to room. Examined by hospitalist when sitting at rest that heart rate in 140. Patient denies palpitations or chest pain or shortness of breath or lightheadedness. will increase metoprolol to 50 mg TID, continue prn IV metoprolol for heart rate above 110 bpm Supratherapeutic INR hospital INR has been 2.9 to 4.4 to 4.3 to 3.4 expect coumadin level to decline by tomorrow will give coumadin 5 mg bipolar disorder -patient from [facility]; a 302 warrant had been issued for him in [facility] -admitted medically to [facility] after he was found sitting in a hospital staff member's car in the parking lot and was confused and found to have atrial fibrillation with RVR (He became agitated, tried to leave the ER , ripped out his IV and had to be physically restrained. He received 10 mg Haldol and 2 mg Ativan IM. He received IV ketamine in order to get a head CT, which was negative) -as per psychiatry assessment 08/29/18 that patient "presents a risk of harm to both himself and others as a result of his uncontrolled mental illness. Recommend inpatient psychiatric hospitalization at a hospital in [place] on an involuntary commitment once he is medically stabilized. This will allow easier involvement of his family and familiarity with local outpatient services. " -08/29/18 to 08/30/18: Nurse reported that patient received 1 dose of haldol before the morning shift -currently cooperative with medical staff, will try to avoid Haldol unless needed for acute agitation morbid obesity with BMI 61 -patient is very agile and mobile despite being very obese, no apparent physical therapy or occupational therapy needs possible Obstructive sleep apnea CPAP with sleep, patient tolerating CPAP DVT prophylaxis: coumadin Subjective Patient was first this morning after hospitalist reviewing telemetry monitoring that patient's heart rate in 150 bpm. Patient was ambulatory with medical staff at the time. Patient returned to room. Examined by hospitalist when sitting at rest that heart rate in 140. Patient denies palpitations or chest pain or shortness of breath or lightheadedness. No abdominal pain. No vomiting Coumadin level remains elevated at 3.4 Patient cooperative on exam Physical Exam 2 Vital Signs (Past 24 Hours): Last Vital Signs Temp 36.9 C 08/31/18 07:22 Pulse 114 H 08/31/18 07:22 Resp 26 H 08/31/18 07:22 BP 109/74 08/31/18 07:22 Pulse Ox 96 08/31/18 07:22 Constitutional: + obese Eyes: PERRL, conjunctivae normal, anicteric sclerae EOM intact bilaterally ENMT: external ear and nose normal, oropharynx normal Neck: normal visual inspection and trachea midline Respiratory: normal respiratory effort, lungs clear to auscultation Cardiovascular: Rate/Rhythm: + tachycardic Gastrointestinal (Abdomen): normal bowel sounds, soft, nontender, no hepatosplenomegaly Musculoskeletal: no cyanosis or clubbing, extremities motor strength 5/5 Head/Neck/Chest: normocephalic and head atraumatic Neurologic: PERRL, EOMI, accommodation nl, no face palsy, no dysarthria CN' s II-XI intact bilaterally Psychiatric: A+Ox3, euthymic affect
[2018-08-31] MEDS ORDERED: METOPROLOL TARTRATE 50 MG TAB PO SCH (09:00)
[2018-08-31] MEDS: MULTIVITAMIN TAB PO SCH (09:47)
--- NOTE | 2018-08-31 10:10 | Cardiology Progress Note ---
Date of Service August 31, 2018 Assessment & Plan (1) Atrial fibrillation with RVR: Patient describes to me that he has a history of chronic atrial fibrillation with past cardioversion that was unsuccessful. On further questioning he believes that when he takes his blood pressure at home he usually sees systolic readings in the range of 130-140, and he believes his heart rate is in the "100s". He tells me his primary electronic bench technician is Dr Yifan Garzon of [facility]. I looked Dr Garzon up in the [facility] directory, office number . I called and left a messge with his office to call me back in efforts of determining more about the patient's history, including his baseline rate and rhythm, pt states he has been seen there within the last 6 months. Given RVR, will increase metoprolol to 100 mg two times per day, continue digoxin, add oral cardizem with caution given mild LV systolic dysfunction and relative low BP. (2) Bipolar disorder: (3) Confusion: Subjective Chief complaint: Follow-up atrial fibrillation Subjective: Patient without subjective complaint. He is eager for discharge. He remains in atrial fibrillation, the ventricular rates are in the range of 90 bpm when he is supine and resting in bed, but with sitting in the bedside chair or minimal walking he becomes tachycardic with ventricular rate in excess of 130 bpm. Physical Exam 2 Vital Signs (Past 24 Hours): Last Vital Signs Temp 36.9 C 08/31/18 07:22 Pulse 114 H 08/31/18 07:22 Resp 26 H 08/31/18 07:22 BP 109/74 08/31/18 07:22 Pulse Ox 96 08/31/18 07:22 Physical Exam: General: no acute distress and stated age Eyes: conjunctiva are pink and non-injected, sclera clear Chest: normal shape and normal respiratory effort Lungs: clear to auscultation and percussion Cardiac Exam: -Irregular rhythm, tachycardic Abdomen: abdomen soft, non-tender, no abnormal masses and no hepatosplenomegaly Extremities: no edema and no cyanosis Neuro:awake, coversant, follows commands, no focal motor deficits Results & Data Laboratory Results INR today 08/31/18 equals 3.4 _ (1) Bipolar disorder Active/Remission status: remission status unspecified Current bipolar episode type: Current episode severity: Most recent bipolar episode type: Psychotic features: Qualified Code(s): F31.9 - Bipolar disorder, unspecified
[2018-08-31] MEDS: dilTIAZem HCL 30 MG TAB PO SCH ×2 (15:02→20:19)
[2018-08-31] MEDS: WARFARIN SOD 5 MG TAB PO SCH (17:47)
[2018-08-31] MEDS: DIGOXIN 0.25 MG TAB PO SCH (17:47)
[2018-08-31] MEDS: METOPROLOL TARTRATE 100 MG TAB PO SCH (20:19)
[2018-09-01] MEDS: MULTIVITAMIN TAB PO SCH (07:36)
[2018-09-01] MEDS: METOPROLOL TARTRATE 100 MG TAB PO SCH ×2 (07:36→20:44)
[2018-09-01] MEDS: dilTIAZem HCL 30 MG TAB PO SCH ×2 (07:36→20:44)
[2018-09-01 08:20] LABS: INR 2.7 (0.9-1.1); Prothrombin Time 26.2 Seconds (9.0-12.0)
[2018-09-01 08:30] LABS: BUN Creatinine Ratio 15.4 (10-20); Calcium 8.7 mg/dl (8.5-10.1); Creatinine Clr Calc Pharmacy 237.3 ml/min; Est GFR (African American) 122.2; Est GFR (Non-African American) 105.4; Potassium 3.8 mmol/L (3.5-5.1)
--- NOTE | 2018-09-01 10:28 | Hospitalist Progress Note ---
Date of Service September 01, 2018 Assessment & Plan (1) Atrial fibrillation with RVR: Atrial fibrillation with RVR patient's primary general title i paraprofessional Dr Yifan Garzon of [facility] as per inpatient cardiology note on 08/31/18 -echocardiogram on this admission: Mild global left ventricular hypokinesis is noted, but the regional wall motion and ejection fraction are often times challenging to determine in the setting of atrial fibrillation with rapid ventricular response; mild LV systolic dysfunction at present with his rapid ventricular response. The valves were not well visualized, but there were no grossly significant stenotic regurgitant lesions noted on Doppler assessment -08/29/18 had received digoxin, cardiology service started scheduled metoprolol -despite being on medical therapies to slow down heart rate, patient's resting heart rate between 100 to 120 bpm at rest and up to 140s bpm when ambulating -At night of 08/29/18, patient was started on IV diltiazem with scheduled metoprolol as heart rates noted to have been as high as 140 bpm. subsequent heart rate improvements and diltizem drip was stopped by nocturnalist. However the patient did become more tachycardic. Nurse also reported that patient received 1 dose of haldol before the morning shift. -08/30/18 Patient's heart rate better controlled overall but noted to have episodes of tachycardia with the atrial fibrillation; was on scheduled metoprolol 25 mg QID -08/31/18: metoprolol was increased to 100 mg BID as per cardiology service -09/01/18: Patient recorded to have 4 second pause on telemetry monitoring around 6 AM. apparently was asymptomatic. Patient ambulatory this morning when he expressed to nurse that he was having left arm tingling. Telemetry reviewed and show hear rate controlled and still in atrial fibrillation but no pauses and no ischemic EKG changes seen on EKG. Patient denies chest pain or shortness of breath. will continue metoprolol 100 mg BID for now, will continue to monitor for any new symptoms Supratherapeutic INR hospital INR has been 2.9 to 4.4 to 4.3 to 3.4 coumadin 5 mg was given when INR was 3.4 (08/31/18), INR 2.7 on 09/01/18 and will continue same dose coumadin bipolar disorder -patient from [facility]; a 302 warrant had been issued for him in [facility] -admitted medically to [facility] after he was found sitting in a hospital staff member's car in the parking lot and was confused and found to have atrial fibrillation with RVR (He became agitated, tried to leave the ER , ripped out his IV and had to be physically restrained. He received 10 mg Haldol and 2 mg Ativan IM. He received IV ketamine in order to get a head CT, which was negative) -as per psychiatry assessment 08/29/18 that patient "presents a risk of harm to both himself and others as a result of his uncontrolled mental illness. Recommend inpatient psychiatric hospitalization at a hospital in his [facility] on an involuntary commitment once he is medically stabilized. This will allow easier involvement of his family and familiarity with local outpatient services. " -08/29/18 to 08/30/18: Nurse reported that patient received 1 dose of haldol before the morning shift -currently cooperative with medical staff, will try to avoid Haldol unless needed for acute agitation -09/01/18: Have discussed with patient about 302 warrant and initial inpatient psychiatry evaluation and assessment. Patient reports that he has been cooperative with medical staff and does not pose a danger to himself or to others. He is willing to see psychiatry re-assessment. morbid obesity with BMI 61 -patient is very agile and mobile despite being very obese, no apparent physical therapy or occupational therapy needs Obstructive sleep apnea CPAP with sleep, patient tolerating CPAP DVT prophylaxis: coumadin Subjective Patient recorded to have 4 second pause on telemetry monitoring around 6 AM. apparently was asymptomatic Patient ambulatory this morning when he expressed to nurse that he was having left arm tingling. Telemetry reviewed and show hear rate controlled and still in atrial fibrillation but no pauses and no ischemic EKG changes seen on EKG Patient denies chest pain or shortness of breath. Have discussed with patient about 302 warrant and initial inpatient psychiatry evaluation and assessment. Patient reports that he has been cooperative with medical staff and does not pose a danger to himself or to others. He is willing to see psychiatry re-assessment. Physical Exam 2 Vital Signs (Past 24 Hours): Last Vital Signs Temp 36.4 C L 09/01/18 09:41 Pulse 60 09/01/18 09:41 Resp 24 09/01/18 09:41 BP 128/93 09/01/18 09:41 Pulse Ox 95 09/01/18 09:41 Constitutional: + obese Eyes: PERRL, conjunctivae normal, anicteric sclerae EOM intact bilaterally ENMT: external ear and nose normal, oropharynx normal Neck: normal visual inspection and trachea midline Respiratory: normal respiratory effort, lungs clear to auscultation Cardiovascular: Rate/Rhythm: regular rate (atrial fribillation) Gastrointestinal (Abdomen): normal bowel sounds, soft, nontender, no hepatosplenomegaly Musculoskeletal: no cyanosis or clubbing, extremities motor strength 5/5 Head/Neck/Chest: normocephalic and head atraumatic Neurologic: PERRL, EOMI, accommodation nl, no face palsy, no dysarthria CN' s II-XI intact bilaterally Psychiatric: A+Ox3, euthymic affect
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
[2018-09-01] MEDS: DIGOXIN 0.25 MG TAB PO SCH (16:07)
[2018-09-01] MEDS: WARFARIN SOD 5 MG TAB PO SCH (16:07)
[2018-09-02] MEDS: dilTIAZem HCL 30 MG TAB PO SCH (07:51)
[2018-09-02] MEDS: METOPROLOL TARTRATE 100 MG TAB PO SCH (07:51)
[2018-09-02] MEDS: MULTIVITAMIN TAB PO SCH (07:52)
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
== END 2018-09-02 12:57 | DRG 309 ==
LOC: ED 14:15 → 1E 20:29 → SUATTDRO 20:29 → 1E 21:19 → 2E 08-29 17:55